=== PATIENT | female | born 1955 | race Caucasian/White ===

== ENCOUNTER → 2017-11-25 00:23 | Outpatient (CLI) | payer OTHER, SELFPAY ==
--- NOTE | 2017-11-25 12:05 | DI.REPORT_ITS ---
SYMPTOM/DIAGNOSIS: SCREENING, P [facility] Z00.00 MAMMOGRAMS: Mammograms were interpreted according to the usual protocol including computer analysis with CAD system, tomosynthesis and C view imaging. Comparison with prior examinations. Breast density B. No masses or microcalcifications are seen. There is nothing to suggest malignancy. IMPRESSION: Negative mammogram. Category 1, breast density category B. Routine screening is recommended. [facility] ASSESSMENT OF FINDINGS: Negative. Category 1. Patient will receive a letter notifying them of these results. BI-RADS category B. There are scattered areas of fibroglandular density.
== END ==
PROVIDERS: PCP Specialist/Technologist Athletic Trainer; Visit Provider Specialist/Technologist Athletic Trainer
DX: Z00.00 Encounter for general adult medical examination without abnormal findings (principal); Z12.31 Encounter for screening mammogram for malignant neoplasm of breast
CPT/HCPCS: 77063; 77067

== ENCOUNTER → 2017-12-10 01:11 | Outpatient (CLI) | payer OTHER, SELFPAY ==
[2017-12-10 13:22] LABS: CREATININE 0.69 mg/dL (0.55-1.02)
[2017-12-10] MEDS: Gadoterate meglumine 20 ML VIAL 11 ML IVP (14:15)
--- NOTE | 2017-12-10 14:25 | DI.REPORT_ITS ---
SYMPTOM/DIAGNOSIS: MS, G35, COMPARE TO PREVIOUS BRAIN MRI: Comparison is made with 09/15/13 from [facility] [place]. T 2 and FLAIR sagittal, T 1, T 2, FLAIR, diffusion and gradient echo axial and post Gadolinium T 1 axial and coronal sequences were performed. There has been no significant change in the previously noted periventricular white matter lesions consistent with the patient's history of multiple sclerosis. There is involvement of the splenium of the corpus callosum, unchanged. No brain stem lesions are identified. There are no abnormal areas of enhancement. 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 IMPRESSION: Stable bilateral periventricular white matter changes consistent with the patient's history of multiple sclerosis.
== END ==
PROVIDERS: PCP Specialist/Technologist Athletic Trainer; Visit Provider Specialist/Technologist Athletic Trainer
DX: G35 Multiple sclerosis (principal); Z13.89 Encounter for screening for other disorder
CPT/HCPCS: 36415; 70553; 82565

== ENCOUNTER 2018-12-02 01:27 | Outpatient (CLI) | payer OTHER, SELFPAY ==
--- NOTE | 2018-12-02 15:20 | DI.MAMMO_ITS ---
SYMPTOMS/DIAGNOSIS: SCREENING, Z12.39 MAMMOGRAM: Mammograms were interpreted according to the usual protocol including computer analysis with CAD system, tomosynthesis and C view imaging. The breasts are of moderate density with fairly symmetrical distribution of fibroglandular tissue. No dominant mass or clumped microcalcification is identified in either breast. Current examination is compared with previous examinations including November 2017 and there has been no gross interval change in appearance in comparison with the previous studies. CONCLUSION: No specific evidence of malignancy at this time. Routine screening examinations are suggested at yearly intervals in this age group according to the ACS/ACR guidelines. Category 1, breast density category B. [facility] ASSESSMENT OF FINDINGS: Negative. Category 1. Patient will receive a letter notifying them of these results. BI-RADS category B. There are scattered areas of fibroglandular density.
== END 2018-12-02 01:47 ==
PROVIDERS: PCP Nurse Practitioner Family; Visit Provider Nurse Practitioner Family
DX: Z12.31 Encounter for screening mammogram for malignant neoplasm of breast (principal)
CPT/HCPCS: 77063; 77067

== ENCOUNTER 2019-02-09 09:28 | Outpatient (REF) | payer OTHER, SELFPAY ==
[2019-02-09 20:49] LABS: Anion Gap 6.2 mmol/L (3-11); BUN 28 mg/dL (7-18); CO2 30.8 mmol/L (21.0-32.0); Calcium 8.8 mg/dL (8.5-10.1); Calculated LDL 139 mg/dL; Chloride 106 mmol/L (98-107); Cholesterol 221 mg/dL (50-200); Glucose 83 mg/dL (70-100); HDL Cholesterol 71 mg/dL (40-60); Potassium 4.5 mmol/L (3.5-5.1); Sodium 143 mmol/L (136-145); Triglyceride 55 mg/dL (30-150)
== END 2019-02-09 09:48 ==
LOC: NCHCN 09:28
PROVIDERS: PCP Nurse Practitioner Family; Visit Provider Nurse Practitioner Family
DX: I83.90 Asymptomatic varicose veins of unspecified lower extremity (principal); F32.9 Major depressive disorder, single episode, unspecified; G35 Multiple sclerosis; E78.5 Hyperlipidemia, unspecified; R03.0 Elevated blood-pressure reading, without diagnosis of hypertension
CPT/HCPCS: 80048; 80061

== ENCOUNTER 2019-07-21 01:08 | Outpatient (CLI) | payer OTHER, SELFPAY ==
--- NOTE | 2019-07-21 09:26 | DI.RAD_ITS ---
EXAM: XR KNEE LT 3V AP,LAT,EDI CLINICAL HISTORY: LT KNEE PAIN, M25.562, GROSS BONY ABNORMALITY LIKELY, R/T OA. TECHNIQUE: 2D digital imaging was performed. COMPARISON: No exams were available for comparison FINDINGS: BONES: No acute fracture is present. No bony destructive lesion is seen. Hypertrophic changes are se en at the anterior tibial tuberosity. JOINTS: The knee is normally aligned. There is a small joint effusion. Moderately severe degenerativ e changes are seen in the left knee characterized by joint space narrowing of the medial femoral tibi al joint space and periarticular spurring of the posterior patella and both medial and lateral femora l tibial joints. SOFT TISSUE: Normal. IMPRESSION: Moderately severe degenerative changes of the left knee. DATA REPOSITORY: RADIATION DOSE DELIVERED:
== END 2019-07-21 01:28 ==
PROVIDERS: PCP Nurse Practitioner Family; Visit Provider Nurse Practitioner Family
DX: M25.562 Pain in left knee (principal); M25.462 Effusion, left knee; M17.12 Unilateral primary osteoarthritis, left knee
CPT/HCPCS: 73562

== ENCOUNTER 2020-02-15 09:33 | Outpatient (REF) | payer OTHER, SELFPAY ==
[2020-02-15 20:49] LABS: Absolute Basophil Count 0.04 10^3/uL (0.0-0.2); Absolute Eosinophil Count 0.16 10^3/uL (0.0-0.7); Absolute Lymphocyte Count 1.38 10^3/uL (1.2-3.4); Absolute Monocyte Count 0.27 10^3/uL (0.1-0.8); Absolute Neutrophil Count 2.23 10^3/uL (1.2-6.7); Eosinophils % 3.9; HCT 40.9 % (36.0-46.0); HGB 12.7 g/dL (11.2-15.7); Lymphocytes % 33.8; MCH 27.9 pg (27.0-33.0); MCHC 31.1 % (32.0-36.0); MCV 89.9 fL (80-95); MPV 9.8 fL (8.0-11.0); Monocytes % 6.6; Neutrophils % 54.7; Nucleated RBC 0 %; Platelet Count 274 10^3/uL (130-400); RBC 4.55 10^6/uL (3.93-5.22); RDW 12.7 % (11.7-14.6); RDW-SD 41.9 fL; WBC 4.08 10^3/uL (4.4-10.8)
[2020-02-15 21:19] LABS: Anion Gap 5.1 mmol/L (3-11); BUN 27 mg/dL (7-18); CO2 29.9 mmol/L (21.0-32.0); CREATININE 0.67 mg/dL (0.55-1.02); Calcium 8.6 mg/dL (8.5-10.1); Calculated LDL 138 mg/dL (<100); Chloride 105 mmol/L (98-107); Cholesterol 224 mg/dL (<200); Glucose 78 mg/dL (74-106); HDL Cholesterol 75 mg/dL (40-60); Potassium 4.4 mmol/L (3.5-5.1); Sodium 140 mmol/L (136-145); TSH 2.61 uIU/mL (0.36-3.74); Triglyceride 55 mg/dL (<150)
== END 2020-02-15 09:53 ==
LOC: NCHCN 09:33
PROVIDERS: PCP Nurse Practitioner Family; Visit Provider Nurse Practitioner Family
DX: Z00.00 Encounter for general adult medical examination without abnormal findings (principal)
CPT/HCPCS: 80048; 80061; 84443; 85025

== ENCOUNTER 2020-02-20 10:13 | Outpatient (CLI) | payer OTHER, SELFPAY | END 2020-02-20 10:33 | PROVIDERS: PCP Nurse Practitioner Family; Visit Provider Nurse Practitioner Family | DX: R07.9 Chest pain, unspecified (principal) | CPT/HCPCS: 93225 ==

== ENCOUNTER 2020-02-22 13:54 | Outpatient (CLI) | payer OTHER, SELFPAY ==
--- NOTE | 2020-02-23 10:56 | W.HOLTRPT ---
Date of service: 02/23/20 Time of Service: 10:56 Holter Monitor Report Referring Provider:: maxi Cruz Indications:: Chest pain Holter Monitor Note: This is a 48-hour Holter monitor reportedly ordered for symptoms of chest pain The rhythm throughout was sinus. Average heart rate was 83. Minimum was 62 and maximum 131 There were rare atrial and ventricular ectopic beats There was one atrial run, lasting 7 beats in duration There were no pauses greater than 3 seconds, atrial fibrillation, or high-grade AV block Patient symptoms corresponded to sinus rhythm
== END 2020-02-22 14:14 ==
PROVIDERS: PCP Nurse Practitioner Family; Visit Provider Nurse Practitioner Family
DX: R07.9 Chest pain, unspecified (principal)
CPT/HCPCS: 93226

== ENCOUNTER 2021-03-28 00:15 | Outpatient (CLI) | payer OTHER, SELFPAY ==
--- NOTE | 2021-03-28 11:17 | DI.MAMMO_ITS ---
Exam(s) MAMMO SCREENING EXAM: MAMMO SCREENING CLINICAL HISTORY: [facility] Z00.00, SCREENING MAMMO. TECHNIQUE: Bilateral full field digital CC and MLO mammographic images were obtained with 3D tomosyn thesis and utilizing computer aided detection (CAD). COMPARISON: Prior mammograms dating back to 2010, the most recent being November 2018. FINDINGS: There has been no significant change in the appearance and distribution of the fibroglandular tissue. No new spiculated masses. There is a microcalcification group at approximately 12 o'clock position left breast which remains be nign-appearing. No new malignant-appearing microcalcification groups. There is no significant architectural distortion nor skin thickening-retraction. IMPRESSION: Stable benign findings. No radiographic evidence of malignancy. BI-RADS Category 2 - Benign Findings Breast Density - Category B - Scattered areas of fibroglandular density Breast density Category C or D implies that the patient has dense breast tissue. Dense breast tissue can make it harder to find cancer on a mammogram. Dense breast tissue is also associated with an incr eased risk of breast cancer. This information about the result of the mammogram report was provided to the patient to raise their awareness. Use this report when you speak with the patient about their risks for breast cancer, which includes their family history. At that time, you may recommend additional screening tests (Ultrasoun d or MRI) as these tests may add significant information. A negative radiographic report should not delay biopsy if a dominant or clinically suspicious mass is present. Up to ten percent of cancers are not identified on mammography. A negative report may reinforce clinical impression. Adenosis and dense breasts may obscure an underlying neoplasm. False positive reports average 6 to 10%. Patient will receive a letter notifying them of these results.
== END 2021-03-28 00:35 ==
PROVIDERS: PCP Nurse Practitioner Family; Visit Provider Nurse Practitioner Family
DX: Z12.31 Encounter for screening mammogram for malignant neoplasm of breast (principal); R92.8 Other abnormal and inconclusive findings on diagnostic imaging of breast; R92.0 Mammographic microcalcification found on diagnostic imaging of breast
CPT/HCPCS: 77063; 77067

== ENCOUNTER 2021-04-05 13:46 | Outpatient (REF) | payer OTHER, SELFPAY ==
[2021-04-05 14:40] LABS: Calculated LDL 147 mg/dL (<100); Cholesterol 240 mg/dL (<200); Glucose 73 mg/dL (74-106); HDL Cholesterol 83 mg/dL (40-60); Triglyceride 52 mg/dL (<150)
== END 2021-04-05 13:47 | disposition home or self-care (01) ==
LOC: NCHCN 13:46
PROVIDERS: PCP Nurse Practitioner Family; Visit Provider Nurse Practitioner Family
DX: Z00.00 Encounter for general adult medical examination without abnormal findings (principal)
CPT/HCPCS: 80061; 82947

== ENCOUNTER 2021-10-03 11:14 | Outpatient (REF) | payer MEDICARE, SELFPAY ==
[2021-10-03 15:21] LABS: Anion Gap 6.7 mmol/L (3-11); BUN 34 mg/dL (7-18); CO2 30.3 mmol/L (21.0-32.0); CREATININE 0.7 mg/dL (0.55-1.02); Calcium 8.7 mg/dL (8.5-10.1); Chloride 103 mmol/L (98-107); Glucose 89 mg/dL (74-106); Potassium 4.3 mmol/L (3.5-5.1); Sodium 140 mmol/L (136-145)
== END 2021-10-03 11:15 | disposition home or self-care (01) ==
LOC: NCHCN 11:14
PROVIDERS: PCP Nurse Practitioner Family; Visit Provider Nurse Practitioner Family
DX: Z51.81 Encounter for therapeutic drug level monitoring (principal); G35 Multiple sclerosis
CPT/HCPCS: 80048

== ENCOUNTER 2022-02-04 17:02 | Outpatient (REF) | payer MEDICARE, SELFPAY ==
[2022-02-04 15:44] LABS: Anion Gap 4.8 mmol/L (3-11); BUN 40 mg/dL (7-18); CO2 31.2 mmol/L (21.0-32.0); CREATININE 0.8 mg/dL (0.55-1.02); Chloride 104 mmol/L (98-107); Estimated GFR 81.72 (mL/min/1.73m2); Glucose 83 mg/dL (74-106); Potassium 4.5 mmol/L (3.5-5.1); Sodium 140 mmol/L (136-145)
== END 2022-02-04 17:03 | disposition home or self-care (01) ==
LOC: NCHCN 17:02
PROVIDERS: PCP Nurse Practitioner Family; Visit Provider Nurse Practitioner Family
DX: I10 Essential (primary) hypertension (principal)
CPT/HCPCS: 80048

== ENCOUNTER 2022-08-19 12:05 | Outpatient (CLI) | payer MEDICARE, SELFPAY ==
--- NOTE | 2022-08-19 14:49 | DI.MAMMO_ITS ---
Exam(s) MAMMO SCREENING EXAM: MAMMO SCREENING CLINICAL HISTORY: SCREENING, Z12.39 TECHNIQUE: Bilateral full field digital CC and MLO mammographic images were obtained with 3D tomosyn thesis and utilizing computer aided detection (CAD). COMPARISON: Available for comparison. FINDINGS: Masses/Architectural Distortion: There are stable scattered nodules in the left breast. No suspiciou s nodules or areas of architectural distortion are seen. Microcalcifications: No suspicious pleomorphic-type are seen. Stable benign type calcifications are s een in both breasts. Skin Thickening/Nipple Retraction: None. IMPRESSION: 1. No significant interval change with no specific features of malignancy noted. 2. Unless there is more urgent need, screening mammography is recommended, as per [employer] guidelines. BI-RADS Category 2 - Benign Findings Breast Density - Category B - Scattered areas of fibroglandular density Breast density category C or D implies that the patient has dense breast tissue. Dense breast tissue is very common and is not abnormal but dense breast tissue can make it harder to find cancer on a ma mmogram. Also, dense breast tissue may increase their breast cancer risk. This information about the result of the mammogram report was provided to the patient to raise their awareness. Use this report when you speak with the patient about their risks for breast cancer, which includes their family hist ory. At that time, you may recommend for more screening tests (Ultrasound or MRI) as they might be us eful based on their risk. A negative radiographic report should not delay biopsy if a dominant or clinically suspicious mass is present. Up to ten percent of cancers are not identified on mammography. A negative report may reinforce clinical impression. Adenosis and dense breasts may obscure an underlying neoplasm. False positive reports average 6 to 10%. Patient will receive a letter notifying them of these results.
== END 2022-08-19 12:25 ==
PROVIDERS: PCP Nurse Practitioner Family; Visit Provider Nurse Practitioner Family
DX: Z12.31 Encounter for screening mammogram for malignant neoplasm of breast (principal)
CPT/HCPCS: 77063; 77067

== ENCOUNTER 2022-12-04 09:13 | Outpatient (REF) | payer MEDICARE, SELFPAY ==
[2022-12-04 17:05] LABS: Calculated LDL 116 mg/dL (<100); Cholesterol 206 mg/dL (<200); Glucose 89 mg/dL (74-106); HDL Cholesterol 75 mg/dL (40-60); Triglyceride 78 mg/dL (<150)
== END 2022-12-04 09:14 | disposition home or self-care (01) ==
LOC: NCHCN 09:13
PROVIDERS: PCP Nurse Practitioner Family; Visit Provider Nurse Practitioner Family
DX: E78.5 Hyperlipidemia, unspecified (principal); Z13.1 Encounter for screening for diabetes mellitus
CPT/HCPCS: 80061; 82947

== ENCOUNTER 2023-06-22 12:47 | Outpatient (REF) | payer MEDICARE, SELFPAY ==
[2023-06-22 16:11] LABS: Vitamin B12 1169 pg/mL (193-986)
== END 2023-06-22 12:48 | disposition home or self-care (01) ==
LOC: NCHCN 12:47
PROVIDERS: PCP Nurse Practitioner Family; Visit Provider Nurse Practitioner Family
DX: G35 Multiple sclerosis (principal)
CPT/HCPCS: 82607

== ENCOUNTER 2024-01-20 16:01 | Outpatient (REF) | payer MEDICARE, SELFPAY ==
[2024-01-20 15:18] LABS: HCT 35.6 % (36.0-46.0); HGB 10.7 g/dL (11.2-15.7); MCH 23.4 pg (27.0-33.0); MCHC 30.1 % (32.0-36.0); MCV 78 fL (80-95); Platelet Count 528 10^3/uL (130-400); RBC 4.58 10^6/uL (3.93-5.22); RDW 15.1 % (11.7-14.6); RDW-SD 42.3 fL; WBC 16.69 10^3/uL (4.4-10.8)
[2024-01-20 15:39] LABS: ALT 33 U/L (14-59); AST 35 U/L (15-37); Albumin 2.7 g/dL (3.4-5.0); Alkaline Phosphatase 214 U/L (46-116); Amylase 38 U/L (25-115); Anion Gap 7.1 mmol/L (3-11); BUN 29 mg/dL (7-18); Bilirubin, Total 0.34 mg/dL (0.2-1.0); CO2 28.9 mmol/L (21.0-32.0); CREATININE 0.6 mg/dL (0.55-1.02); Chloride 100 mmol/L (98-107); Estimated GFR 98.32 (mL/min/1.73m2); Glucose 107 mg/dL (74-106); Lipase 33 U/L (16-77); Potassium 4.4 mmol/L (3.5-5.1); Sodium 136 mmol/L (136-145); Total Protein 7.7 g/dL (6.4-8.2)
[2024-01-20 15:49] LABS: Calcium 8.9 mg/dL (8.5-10.1)
[2024-01-20 17:20] LABS: Abs Immature Grans 0.07 10^3/uL (0.0-0.06); Absolute Basophil Count 0.08 10^3/uL (0.0-0.2); Absolute Eosinophil Count 0.09 10^3/uL (0.0-0.7); Absolute Lymphocyte Count 0.84 10^3/uL (1.2-3.4); Absolute Monocyte Count 0.65 10^3/uL (0.1-0.8); Absolute Neutrophil Count 14.52 10^3/uL (1.2-6.7); Basophils % 0.5 %; Eosinophils % 0.6 %; Immature Grans % 0.4 %; Lymphocytes % 5.2 %; Neutrophils % 89.3 %
== END 2024-01-20 16:02 | disposition home or self-care (01) ==
LOC: NCHCN 16:01
PROVIDERS: PCP Physician Assistant Medical; Visit Provider Physician Assistant Medical
DX: R10.32 Left lower quadrant pain (principal)
CPT/HCPCS: 80053; 83690; 85027; 87077; 82150; 85025; 87086; 87186